=== PATIENT | male | born 1965 | race African-American/Black ===

== ENCOUNTER 2017-05-17 18:19 | Emergency (ER) | payer MEDICAID ==
[~2017-05-17] VITALS: Ht 167.6 cm; Wt 91.0 kg
[~2017-05-17 18:19] MED LIST: ABIL10; BUPR75TA3; DARU75TA; EMTR1TAB11 PO; RITO100T
[2017-05-17 21:40] VITALS: BP 126/89
== END 2017-05-17 22:42 | disposition home or self-care (01) ==
LOC: ER 18:19
DX: K04.7 Periapical abscess without sinus (principal)
CPT/HCPCS: 99283; Z7610

== ENCOUNTER 2020-08-13 19:43 | Emergency (ER) | payer MEDICAID ==
[~2020-08-13] VITALS: Ht 167.6 cm; Wt 95.1 kg
[2020-08-13 19:50] VITALS: BP 119/71
[2020-08-13] MEDS ORDERED: IBUPROFEN 600MG TABLET PO ONE (20:45)
== END 2020-08-13 21:32 | disposition home or self-care (01) ==
LOC: ER 19:43
DX: H92.02 Otalgia, left ear (principal); F20.9 Schizophrenia, unspecified; Z87.442 Personal history of urinary calculi
CPT/HCPCS: 99282

== ENCOUNTER 2020-09-07 18:05 | Emergency (ER) | payer MEDICAID ==
[~2020-09-07] VITALS: Ht 167.6 cm; Wt 91.0 kg
[2020-09-07] MEDS ORDERED: IBUPROFEN 600MG TABLET PO ONE (19:15)
[2020-09-07 20:04] VITALS: BP 151/74
== END 2020-09-07 20:06 | disposition home or self-care (01) ==
LOC: ER 18:05
DX: M25.562 Pain in left knee (principal); M79.662 Pain in left lower leg; F20.9 Schizophrenia, unspecified; F31.9 Bipolar disorder, unspecified; Z87.442 Personal history of urinary calculi
CPT/HCPCS: 73560; 93971; 99284

== ENCOUNTER 2021-06-04 02:03 | Emergency (ER) | payer MEDICAID ==
[~2021-06-04] VITALS: Ht 167.6 cm; Wt 69.7 kg
[2021-06-04 03:02] VITALS: BP 113/74
[2021-06-04 05:15] LABS: CHLORIDE 104 mEq/L (98-107)
[2021-06-04] MEDS ORDERED: DARU1TAB3 PO (05:30)
== END 2021-06-04 05:44 | disposition home or self-care (01) ==
LOC: ER 02:03
DX: Z76.0 Encounter for issue of repeat prescription (principal); J45.909 Unspecified asthma, uncomplicated; Z86.59 Personal history of other mental and behavioral disorders
CPT/HCPCS: 36415; 80053; 99283

== ENCOUNTER 2021-06-06 19:36 | Emergency (ER) | payer MEDICAID ==
[~2021-06-06] VITALS: Ht 167.6 cm; Wt 64.0 kg
[~2021-06-06 19:36] MED LIST changes: +DARU1TAB3 PO
[2021-06-06 19:42] VITALS: BP 157/119
== END 2021-06-07 00:02 | disposition left against medical advice (07) ==
LOC: ER 19:36
DX: Z53.21 Procedure and treatment not carried out due to patient leaving prior to being seen by health care provider (principal)
CPT/HCPCS: 93005

== ENCOUNTER 2021-06-26 21:05 | Emergency (ER) | payer MEDICAID ==
[~2021-06-26] VITALS: Ht 167.6 cm; Wt 69.5 kg
[2021-06-26 21:10] VITALS: BP 114/86
[2021-06-27] MEDS ORDERED: DARU1TAB3 PO (09:39)
== END 2021-06-27 02:05 | disposition left against medical advice (07) ==
LOC: ER 21:05
DX: R07.81 Pleurodynia (principal); Z53.21 Procedure and treatment not carried out due to patient leaving prior to being seen by health care provider

== ENCOUNTER 2021-06-27 09:19 | Emergency (ER) | payer MEDICAID ==
[~2021-06-27] VITALS: Ht 167.6 cm; Wt 64.0 kg
[2021-06-27 09:37] VITALS: BP 125/87
[2021-06-27] MEDS ORDERED: DARU1TAB3 PO (09:39)
== END 2021-06-27 10:08 | disposition home or self-care (01) ==
LOC: ER 10:05
DX: B20 Human immunodeficiency virus [HIV] disease (principal); Z76.0 Encounter for issue of repeat prescription; F20.9 Schizophrenia, unspecified; Z79.899 Other long term (current) drug therapy
CPT/HCPCS: 99283

== ENCOUNTER 2021-07-01 13:03 | Emergency (ER) | payer MEDICAID ==
[~2021-07-01] VITALS: Ht 165.1 cm; Wt 68.0 kg
[2021-07-01 13:22] VITALS: BP 108/71
[2021-07-02] MEDS ORDERED: EMTR1TAB11 MT (20:54)
== END 2021-07-01 18:18 | disposition left against medical advice (07) ==
LOC: ER 13:03
DX: Z00.00 Encounter for general adult medical examination without abnormal findings (principal); B20 Human immunodeficiency virus [HIV] disease; F20.9 Schizophrenia, unspecified; Z87.442 Personal history of urinary calculi
CPT/HCPCS: 99281

== ENCOUNTER 2021-07-01 21:27 | Emergency (ER) | payer MEDICAID ==
[2021-07-02] MEDS ORDERED: EMTR1TAB11 MT (20:54)
== END 2021-07-01 23:17 | disposition left against medical advice (07) ==
LOC: ER 21:27
DX: Z53.21 Procedure and treatment not carried out due to patient leaving prior to being seen by health care provider (principal); B20 Human immunodeficiency virus [HIV] disease; F20.9 Schizophrenia, unspecified; Z87.442 Personal history of urinary calculi

== ENCOUNTER 2021-07-02 20:11 | Emergency (ER) | payer MEDICAID ==
[~2021-07-02] VITALS: Ht 167.6 cm; Wt 59.0 kg
[2021-07-02 20:35] VITALS: BP 109/73
[2021-07-02] MEDS ORDERED: EMTR1TAB11 MT (20:54)
== END 2021-07-02 21:18 | disposition home or self-care (01) ==
LOC: ER 20:11
DX: Z76.0 Encounter for issue of repeat prescription (principal); Z79.899 Other long term (current) drug therapy; Z86.59 Personal history of other mental and behavioral disorders; J45.909 Unspecified asthma, uncomplicated
CPT/HCPCS: 99281

== ENCOUNTER 2021-07-03 23:52 | Emergency (ER) | payer MEDICAID ==
[~2021-07-03 23:52] MED LIST changes: +EMTR1TAB11 MT
== END 2021-07-04 01:47 | disposition left against medical advice (07) ==
LOC: ER 23:52
DX: R68.89 Other general symptoms and signs (principal); Z53.21 Procedure and treatment not carried out due to patient leaving prior to being seen by health care provider

== ENCOUNTER 2021-08-12 02:08 | Emergency (ER) | payer MEDICAID ==
[~2021-08-12] VITALS: Ht 167.6 cm; Wt 72.0 kg
[2021-08-12 02:25] VITALS: BP 116/68
[2021-08-12] MEDS ORDERED: DARU1TAB3 PO (02:33)
== END 2021-08-12 02:41 | disposition home or self-care (01) ==
LOC: ER 02:08
DX: Z76.0 Encounter for issue of repeat prescription (principal); F20.9 Schizophrenia, unspecified; F31.9 Bipolar disorder, unspecified; B20 Human immunodeficiency virus [HIV] disease; Z87.442 Personal history of urinary calculi
CPT/HCPCS: 99283

== ENCOUNTER 2021-08-14 14:13 | Emergency (ER) | payer MEDICAID ==
[~2021-08-14] VITALS: Ht 185.4 cm; Wt 75.0 kg
[2021-08-14 14:32] VITALS: BP 101/67
== END 2021-08-14 15:04 | disposition home or self-care (01) ==
LOC: ER 14:27
DX: B20 Human immunodeficiency virus [HIV] disease (principal); F20.9 Schizophrenia, unspecified; F31.9 Bipolar disorder, unspecified; Z87.442 Personal history of urinary calculi
CPT/HCPCS: 99282

== ENCOUNTER 2021-08-16 08:10 | Emergency (ER) | payer MEDICAID ==
[~2021-08-16] VITALS: Ht 167.6 cm; Wt 76.0 kg
[2021-08-16 08:17] VITALS: BP 108/67
[2021-08-16] MEDS ORDERED: DARU1TAB3 PO (08:36)
== END 2021-08-16 08:55 | disposition home or self-care (01) ==
LOC: ER 08:10
DX: Z76.0 Encounter for issue of repeat prescription (principal); F20.9 Schizophrenia, unspecified; F31.9 Bipolar disorder, unspecified; Z21 Asymptomatic human immunodeficiency virus [HIV] infection status
CPT/HCPCS: 99283

== ENCOUNTER 2021-08-29 21:26 | Emergency (ER) | payer MEDICAID ==
[~2021-08-29] VITALS: Ht 167.6 cm; Wt 75.0 kg
[2021-08-29 21:37] VITALS: BP 116/70
== END 2021-08-29 22:41 | disposition home or self-care (01) ==
LOC: ER 21:44
DX: Z76.0 Encounter for issue of repeat prescription (principal); F31.9 Bipolar disorder, unspecified; F20.9 Schizophrenia, unspecified; Z79.899 Other long term (current) drug therapy; B20 Human immunodeficiency virus [HIV] disease
CPT/HCPCS: 99281

== ENCOUNTER 2024-01-27 11:45 | Inpatient (IN) | payer MEDICAID, OTHER ==
[~2024-01-27] VITALS: Ht 172.7 cm; Wt 70.8 kg
[2024-01-27 13:49] LABS: MEAN CORPUSCULAR HEMOGLOBIN 32.4 pg (28.0-32.0); MEAN CORPUSCULAR HGB CONC 33.7 g/dL (31.0-37.0); MEAN CORPUSCULAR VOLUME 96.2 fL (80.0-94.0); RED BLOOD CELL COUNT 6.28 mill/uL (4.7-6.1); RED CELL DISTRIBUTION WIDTH 13.6 % (11.6-14.6); WHITE BLOOD COUNT 11.8 x1000/uL (4.5-11.0)
[2024-01-27 13:50] LABS: DIFFERENTIAL COMMENT 1
[2024-01-27 13:52] LABS: CHLORIDE 113 mEq/L (98-107); POTASSIUM 4.1 mEq/L (3.5-5.1); SODIUM 151 mEq/L (136-145)
[2024-01-27 13:53] LABS: CALCIUM 11.4 mg/dL (8.7-10.4); CARBON DIOXIDE 21 mEq/L (21-32)
[2024-01-27 13:54] LABS: HEMATOCRIT. 60.4 % (42.0-52.0); HEMOGLOBIN. 20.4 g/dL (14.0-18.0)
[2024-01-27 13:58] LABS: CREATININE 3.6 mg/dL (0.6-1.3); GLUCOSE 137 mg/dL (70-105); UREA NITROGEN BLOOD 86 mg/dL (9-23)
[2024-01-27 13:59] LABS: AMMONIA < 17 uMol/L (<32)
[2024-01-27 14:00] LABS: ACETAMINOPHEN 7 ug/mL (10-30); ALANINE AMINOTRANSFERASE 115 IU/L (10-49); ALBUMIN 5.1 g/dL (3.2-4.8); ASPARTATE AMINOTRANSFERASE 66 IU/L (<34); BILIRUBIN DIRECT 8.3 mg/dL (<=3.0)
[2024-01-27 14:03] LABS: ETHANOL BLOOD < 10 mg/dL (<10); PROTEIN TOTAL 9.4 g/dL (6.0-8.3)
[2024-01-27 14:56] LABS: GIANT PLATELETS FEW; PLATELET ESTIMATE NORMAL
[2024-01-27 22:00] VITALS: BP 106/82; PULSE 86; RESP 18; TEMP 97.5
[2024-01-28] VITALS: BP 110/79; PULSE 65; RESP 20; TEMP 97.1
[2024-01-28] MEDS: DEXTROSE 5% WATER 1,000 ML IV SCH (01:38)
[2024-01-28 02:37] LABS: BASOPHILS % 0.2 % (0.0-2.0); EOSINOPHILS % 0.1 % (0.0-5.0); HEMOGLOBIN. 20.7 g/dL (14.0-18.0); LYMPHOCYTES % 19.5 % (20.0-50.0); MEAN CORPUSCULAR HEMOGLOBIN 32.6 pg (28.0-32.0); MEAN CORPUSCULAR HGB CONC 33.9 g/dL (31.0-37.0); MEAN CORPUSCULAR VOLUME 96.1 fL (80.0-94.0); MONOCYTES % 4.2 % (2.0-8.0); RED BLOOD CELL COUNT 6.35 mill/uL (4.7-6.1); RED CELL DISTRIBUTION WIDTH 13.5 % (11.6-14.6); WHITE BLOOD COUNT 10.3 x1000/uL (4.5-11.0)
[2024-01-28 02:42] LABS: CHLORIDE 114 mEq/L (98-107); SODIUM 151 mEq/L (136-145)
[2024-01-28 02:43] LABS: CARBON DIOXIDE 24 mEq/L (21-32)
[2024-01-28 02:48] LABS: CREATININE 3.4 mg/dL (0.6-1.3); GLUCOSE 150 mg/dL (70-105)
[2024-01-28 02:49] LABS: UREA NITROGEN BLOOD 96 mg/dL (9-23)
[2024-01-28 02:50] LABS: ALANINE AMINOTRANSFERASE 107 IU/L (10-49); ALBUMIN 4.5 g/dL (3.2-4.8); ASPARTATE AMINOTRANSFERASE 68 IU/L (<34)
[2024-01-28 02:51] LABS: BILIRUBIN DIRECT 7.7 mg/dL (<=3.0); BILIRUBIN TOTAL 10.7 mg/dL (0.1-1.0)
[2024-01-28 02:54] LABS: HEMATOCRIT. 61.1 % (42.0-52.0)
[2024-01-28 02:55] LABS: DIFFERENTIAL COMMENT 1
[2024-01-28 03:18] LABS: AMMONIA < 17 uMol/L (<32)
[2024-01-28 03:59] LABS: MEAN PLATELET VOLUME 13.7 fl (7.4-10.4); PLATELET 122 x1000/uL (130-400)
[2024-01-28 04:00] VITALS: BP 108/87; PULSE 98; RESP 16; TEMP 96.6
[2024-01-28 07:46] VITALS: BP 112/84; PULSE 94; RESP 19; TEMP 97.3
[2024-01-28] MEDS: PANTOPRAZOLE SODIUM 40 MG/VIAL IV SCH (08:39)
[2024-01-28 12:06] VITALS: BP 122/85; PULSE 84; RESP 18; TEMP 97.5
[2024-01-28] MEDS ORDERED: ACETAMINOPHEN 325MG TABLET PO PRN (13:00)
[2024-01-28 15:42] VITALS: BP 116/85; PULSE 84; RESP 19; TEMP 97
[2024-01-28 17:19] LABS: *AMPHETAMINES SCREEN URINE NEGATIVE (NEGATIVE); *BARBITURATES SCREEN URINE NEGATIVE (NEGATIVE); *BENZODIAZEPINES SCREEN URINE NEGATIVE (NEGATIVE); METHADONE URINE SCREEN NEGATIVE (NEGATIVE); OPIATES URINE SCREEN NEGATIVE (NEGATIVE)
[2024-01-28 17:20] LABS: CANNABINOID URINE SCREEN NEGATIVE (NEGATIVE); ECSTASY MDMA SCREEN URINE NEGATIVE (NEGATIVE); PHENCYCLIDINE URINE SCREEN NEGATIVE (NEGATIVE)
[2024-01-28 17:23] LABS: CLARITY URINE CLOUDY (CLEAR); COLOR URINE DARK YELLOW (YELLOW); GLUCOSE URINE NEGATIVE (NEGATIVE); KETONES URINE NEGATIVE (NEGATIVE); LEUKOCYTE ESTERASE URINE 1+ (NEGATIVE); NITRITE URINE POSITIVE (NEGATIVE); OCCULT BLOOD URINE 2+ (NEGATIVE); PH URINE 5.5 (4.5-8.0); PROTEIN URINE 2+ (NEGATIVE); SPECIFIC GRAVITY URINE 1.021 (1.005-1.030)
[2024-01-28 17:27] LABS: *COCAINE SCREEN URINE NEGATIVE (NEGATIVE)
[2024-01-28 17:46] LABS: BACTERIA URINE 1+; RBC URINE NONE SEEN /hpf (0-2); SQUAMOUS EPITHELIAL CELL URINE FEW /lpf (RARE/1+); YEAST URINE NONE SEEN
[2024-01-28 20:00] VITALS: BP 121/96; PULSE 84; RESP 20; TEMP 97.1
[2024-01-28] MEDS: CEFTRIAXONE 1GM/50ML 50 ML IV SCH (20:52)
[2024-01-28 21:10] LABS: POTASSIUM 3.5 mEq/L (3.5-5.1)
[2024-01-28 21:11] LABS: CALCIUM 10.5 mg/dL (8.7-10.4)
[2024-01-28 21:16] LABS: CREATININE 2.6 mg/dL (0.6-1.3)
[2024-01-29 00:24] VITALS: BP 116/90; PULSE 55; RESP 19; TEMP 97.1
[2024-01-29 04:00] VITALS: BP 101/78; PULSE 66; RESP 18; TEMP 97.1
[2024-01-29 05:56] LABS: BASOPHILS % 0.5 % (0.0-2.0); EOSINOPHILS % 0.5 % (0.0-5.0); HEMATOCRIT. 53.7 % (42.0-52.0); HEMOGLOBIN. 18.2 g/dL (14.0-18.0); LYMPHOCYTES % 22.2 % (20.0-50.0); MEAN CORPUSCULAR HEMOGLOBIN 32.7 pg (28.0-32.0); MEAN CORPUSCULAR HGB CONC 33.9 g/dL (31.0-37.0); MEAN CORPUSCULAR VOLUME 96.4 fL (80.0-94.0); MONOCYTES % 9.9 % (2.0-8.0); NEUTROPHILS % 66.9 % (40.0-76.0); RED BLOOD CELL COUNT 5.57 mill/uL (4.7-6.1); RED CELL DISTRIBUTION WIDTH 13.5 % (11.6-14.6); WHITE BLOOD COUNT 8.8 x1000/uL (4.5-11.0)
[2024-01-29 06:01] LABS: INR 1.4; PROTHROMBIN TIME 15.5 sec (9.6-11.0)
[2024-01-29 06:07] LABS: CARBON DIOXIDE 23 mEq/L (21-32); CHLORIDE 111 mEq/L (98-107); POTASSIUM 3.5 mEq/L (3.5-5.1); SODIUM 146 mEq/L (136-145)
[2024-01-29 06:08] LABS: CALCIUM 9.9 mg/dL (8.7-10.4)
[2024-01-29 06:13] LABS: CREATININE 2.5 mg/dL (0.6-1.3); GLUCOSE 158 mg/dL (70-105); IRON 209 ug/dL (65-175); UREA NITROGEN BLOOD 73 mg/dL (9-23)
[2024-01-29 06:15] LABS: LACTATE DEHYDROGENASE 418 IU/L (120-246)
[2024-01-29 06:16] LABS: TOTAL IRON BINDING CAPACITY 315 ug/dl (250-425)
[2024-01-29 06:17] LABS: FOLIC ACID (FOLATE) SERUM 4.91 ng/mL (>5.38)
[2024-01-29 06:28] LABS: HEPATITIS B SURFACE ANTIGEN NEGATIVE (Negative)
[2024-01-29 06:32] LABS: FERRITIN 1736 ng/mL (22-322)
[2024-01-29 06:49] LABS: HEPATITIS A AB IGM NEGATIVE (Negative); HEPATITIS B CORE AB IGM NEGATIVE (Negative)
[2024-01-29 06:50] LABS: HEPATITIS C AB NON REACTIVE (Neg) (Negative); VITAMIN B12 SERUM > 2000 pg/mL (211-911)
[2024-01-29 07:47] LABS: DIFFERENTIAL COMMENT 1
[2024-01-29 08:00] VITALS: BP 101/74; PULSE 79; RESP 18; TEMP 97.8
[2024-01-29 08:50] LABS: MEAN PLATELET VOLUME 14.4 fl (7.4-10.4); PLATELET 95 x1000/uL (130-400)
[2024-01-29] MEDS: FOLIC ACID 1MG TABLET PO SCH (10:00)
[2024-01-29 11:05] LABS: ALANINE AMINOTRANSFERASE 106 IU/L (10-49); ASPARTATE AMINOTRANSFERASE 83 IU/L (<34); BILIRUBIN DIRECT 8.5 mg/dL (<=3.0); BILIRUBIN TOTAL 12.2 mg/dL (0.1-1.0); PROTEIN TOTAL 8.1 g/dL (6.0-8.3)
[2024-01-29 12:00] VITALS: BP 112/79; PULSE 77; RESP 18; TEMP 98
[2024-01-29 16:00] VITALS: BP 146/112; PULSE 73; RESP 18; TEMP 97.8
[2024-01-29 20:00] VITALS: BP 113/87; PULSE 83; RESP 18; TEMP 97.6
[2024-01-30] VITALS: BP 105/69; PULSE 70; RESP 18; TEMP 97.7
[2024-01-30 04:00] VITALS: BP 107/84; PULSE 78; RESP 18; TEMP 97.4
[2024-01-30 08:00] VITALS: BP 99/74; PULSE 76; RESP 20; TEMP 98.1
[2024-01-30 09:06] LABS: ABSOLUTE LYMPHOCYTES 1.6 x10E3/uL (0.7-3.1); ABSOLUTE MONOCYTES 0.5 x10E3/uL (0.1-0.9); ABSOLUTE NEUTROPHILS 5.5 x10E3/uL (1.4-7.0); BASOPHILS 0 % (Not Estab.); EOSINOPHILS 0 % (Not Estab.); HEMATOCRIT 55.1 % (37.5-51.0); HEMATOLOGY COMMENT Note: (.); HEMOGLOBIN 19.5 g/dL (13.0-17.7); IMMATURE GRANULOCYTES 0 % (Not Estab.); LYMPHOCYTES 21 % (Not Estab.); MEAN CORPUSCULAR HEMOGLOBIN 32.7 pg (26.6-33.0); MEAN CORPUSCULAR HGB CONC. 35.4 g/dL (31.5-35.7); MEAN CORPUSCULAR VOLUME 92 fL (79-97); MONOCYTES 7 % (Not Estab.); NEUTROPHILS 72 % (Not Estab.); PLATELETS 100 x10E3/uL (150-450); RBC 5.96 x10E6/uL (4.14-5.80); RED CELL DISTRIBUTION WIDTH 12.3 % (11.6-15.4); WBC 7.7 x10E3/uL (3.4-10.8)
[2024-01-30 10:03] LABS: BASOPHILS % 0.2 % (0.0-2.0); EOSINOPHILS % 0.7 % (0.0-5.0); HEMATOCRIT. 52.7 % (42.0-52.0); HEMOGLOBIN. 17.7 g/dL (14.0-18.0); LYMPHOCYTES % 27.2 % (20.0-50.0); MEAN CORPUSCULAR HEMOGLOBIN 32.8 pg (28.0-32.0); MEAN CORPUSCULAR HGB CONC 33.7 g/dL (31.0-37.0); MEAN CORPUSCULAR VOLUME 97.3 fL (80.0-94.0); MONOCYTES % 9.1 % (2.0-8.0); NEUTROPHILS % 62.8 % (40.0-76.0); RED BLOOD CELL COUNT 5.41 mill/uL (4.7-6.1); RED CELL DISTRIBUTION WIDTH 13.3 % (11.6-14.6); WHITE BLOOD COUNT 6.6 x1000/uL (4.5-11.0)
[2024-01-30 10:09] LABS: % CD 3 POS. LYMPHOCYTES 72.9 % (57.5-86.2); % CD 4 POS. LYMPHOCYTES 25.6 % (30.8-58.5); % CD 8 POS. LYMPH 47.9 % (12.0-35.5); ABSOLUTE CD 3 1166 /uL (622-2402); ABSOLUTE CD 4 HELPER 410 /uL (359-1519); ABSOLUTE CD 8 SUPPRESSOR 766 /uL (109-897); CD4/CD8 RATIO 0.53 (0.92-3.72)
[2024-01-30 10:15] LABS: DIFFERENTIAL COMMENT 1
[2024-01-30 10:16] LABS: CHLORIDE 107 mEq/L (98-107); POTASSIUM 3.8 mEq/L (3.5-5.1); SODIUM 142 mEq/L (136-145)
[2024-01-30 10:17] LABS: CALCIUM 9.7 mg/dL (8.7-10.4); CARBON DIOXIDE 26 mEq/L (21-32)
[2024-01-30 10:21] LABS: INR 1.4; PROTHROMBIN TIME 15.2 sec (9.6-11.0)
[2024-01-30 10:22] LABS: CREATININE 2.1 mg/dL (0.6-1.3); GLUCOSE 146 mg/dL (70-105); UREA NITROGEN BLOOD 49 mg/dL (9-23)
[2024-01-30 10:24] LABS: ALANINE AMINOTRANSFERASE 109 IU/L (10-49); ALBUMIN 3.8 g/dL (3.2-4.8); ASPARTATE AMINOTRANSFERASE 90 IU/L (<34)
[2024-01-30 10:25] LABS: BILIRUBIN TOTAL 11.7 mg/dL (0.1-1.0); PROTEIN TOTAL 7.6 g/dL (6.0-8.3)
[2024-01-30 12:00] VITALS: BP 130/79; PULSE 69; RESP 18; TEMP 97.6
[2024-01-30 12:28] LABS: PLATELET 89 x1000/uL (130-400)
[2024-01-30 16:00] VITALS: BP 110/78; PULSE 74; RESP 18; TEMP 98.1
[2024-01-30 20:00] VITALS: BP 120/77; PULSE 74; RESP 19; TEMP 97.1
[2024-01-31] VITALS: BP 108/77; PULSE 63; RESP 19; TEMP 98.4
[2024-01-31 04:00] VITALS: BP 102/78; PULSE 72; RESP 19; TEMP 97.5
[2024-01-31 06:04] LABS: CHLORIDE 105 mEq/L (98-107); SODIUM 141 mEq/L (136-145)
[2024-01-31 06:05] LABS: CARBON DIOXIDE 27 mEq/L (21-32)
[2024-01-31 06:06] LABS: CALCIUM 9.6 mg/dL (8.7-10.4)
[2024-01-31 06:10] LABS: CREATININE 1.7 mg/dL (0.6-1.3); GLUCOSE 147 mg/dL (70-105)
[2024-01-31 06:11] LABS: UREA NITROGEN BLOOD 39 mg/dL (9-23)
[2024-01-31 06:12] LABS: ALANINE AMINOTRANSFERASE 113 IU/L (10-49); ALBUMIN 3.8 g/dL (3.2-4.8); ASPARTATE AMINOTRANSFERASE 82 IU/L (<34)
[2024-01-31 06:13] LABS: BILIRUBIN TOTAL 10.1 mg/dL (0.1-1.0); PROTEIN TOTAL 7.4 g/dL (6.0-8.3)
[2024-01-31 07:52] LABS: BASOPHILS % 0.3 % (0.0-2.0); DIFFERENTIAL COMMENT 0; EOSINOPHILS % 1.5 % (0.0-5.0); HEMATOCRIT. 49.5 % (42.0-52.0); HEMOGLOBIN. 16.9 g/dL (14.0-18.0); LYMPHOCYTES % 31.5 % (20.0-50.0); MEAN CORPUSCULAR HEMOGLOBIN 32.7 pg (28.0-32.0); MEAN CORPUSCULAR HGB CONC 34.2 g/dL (31.0-37.0); MEAN CORPUSCULAR VOLUME 95.8 fL (80.0-94.0); MEAN PLATELET VOLUME 14.4 fl (7.4-10.4); MONOCYTES % 10.1 % (2.0-8.0); NEUTROPHILS % 56.6 % (40.0-76.0); PLATELET 82 x1000/uL (130-400); RED BLOOD CELL COUNT 5.16 mill/uL (4.7-6.1); RED CELL DISTRIBUTION WIDTH 13.1 % (11.6-14.6); WHITE BLOOD COUNT 6.6 x1000/uL (4.5-11.0)
[2024-01-31 08:00] VITALS: BP 110/76; PULSE 78; RESP 18; TEMP 98
[2024-01-31] MEDS: SODIUM CHLORIDE 0.45% 1,000 ML IV SCH (11:15)
[2024-01-31 12:00] VITALS: BP 118/84; PULSE 67; RESP 18; TEMP 97.8
[2024-01-31 16:00] VITALS: BP 120/79; PULSE 68; RESP 18; TEMP 97.9
[2024-01-31 20:00] VITALS: BP 110/81; PULSE 75; RESP 18; TEMP 98.3
[2024-01-31] MEDS: MIRTAZAPINE 15MG TABLET PO SCH (21:17)
[2024-02-01] VITALS: BP 119/86; PULSE 91; RESP 18; TEMP 97.4
[2024-02-01 04:00] VITALS: BP 101/76; PULSE 73; RESP 18; TEMP 98.1
[2024-02-01] MEDS: ONDANSETRON HCL 4MG/2ML INJ IV PRN (05:52)
[2024-02-01 08:00] VITALS: BP 99/72; PULSE 83; RESP 20; TEMP 97.1
[2024-02-01 12:00] VITALS: BP 108/75; PULSE 80; RESP 18; TEMP 98.1
[2024-02-01 16:00] VITALS: BP 118/79; PULSE 79; RESP 16; TEMP 97.9
[2024-02-01 20:00] VITALS: BP 123/88; PULSE 81; RESP 17; TEMP 97.9
[2024-02-01 22:05] LABS: EOSINOPHILS % 1.1 % (0.0-5.0); HEMATOCRIT. 46.9 % (42.0-52.0); HEMOGLOBIN. 15.7 g/dL (14.0-18.0); MEAN CORPUSCULAR HEMOGLOBIN 32.5 pg (28.0-32.0); MEAN CORPUSCULAR HGB CONC 33.5 g/dL (31.0-37.0); MEAN CORPUSCULAR VOLUME 96.8 fL (80.0-94.0); MEAN PLATELET VOLUME 13.6 fl (7.4-10.4); MONOCYTES % 12.2 % (2.0-8.0); NEUTROPHILS % 53.4 % (40.0-76.0); PLATELET 84 x1000/uL (130-400); RED BLOOD CELL COUNT 4.84 mill/uL (4.7-6.1); RED CELL DISTRIBUTION WIDTH 13.3 % (11.6-14.6); WHITE BLOOD COUNT 7.4 x1000/uL (4.5-11.0)
[2024-02-01 22:15] LABS: CHLORIDE 109 mEq/L (98-107); POTASSIUM 4.2 mEq/L (3.5-5.1); SODIUM 140 mEq/L (136-145)
[2024-02-01 22:16] LABS: CARBON DIOXIDE 22 mEq/L (21-32)
[2024-02-01 22:17] LABS: CALCIUM 9.2 mg/dL (8.7-10.4)
[2024-02-01 22:21] LABS: CREATININE 1.2 mg/dL (0.6-1.3); GLUCOSE 71 mg/dL (70-105); UREA NITROGEN BLOOD 23 mg/dL (9-23)
[2024-02-01 22:23] LABS: ALANINE AMINOTRANSFERASE 103 IU/L (10-49); ALBUMIN 3.7 g/dL (3.2-4.8); ASPARTATE AMINOTRANSFERASE 66 IU/L (<34)
[2024-02-01 22:24] LABS: BILIRUBIN TOTAL 7.6 mg/dL (0.1-1.0); PROTEIN TOTAL 7.1 g/dL (6.0-8.3)
[2024-02-02] VITALS (7 sets, daily range): BP systolic 94–129; BP diastolic 64–87; PULSE 62–82; RESP 16–20; TEMP 97.3–98.4
[2024-02-02 13:38] LABS: BASOPHILS % 0.3 % (0.0-2.0)
[2024-02-02 20:36] LABS: BASOPHILS % 0.5 % (0.0-2.0); CHLORIDE 109 mEq/L (98-107); DIFFERENTIAL COMMENT 0; HEMATOCRIT. 47.5 % (42.0-52.0); HEMOGLOBIN. 16.1 g/dL (14.0-18.0); LYMPHOCYTES % 31.3 % (20.0-50.0); MEAN CORPUSCULAR HEMOGLOBIN 32.6 pg (28.0-32.0); MEAN CORPUSCULAR HGB CONC 33.8 g/dL (31.0-37.0); MEAN CORPUSCULAR VOLUME 96.4 fL (80.0-94.0); MEAN PLATELET VOLUME 13.2 fl (7.4-10.4); NEUTROPHILS % 57.2 % (40.0-76.0); PLATELET 86 x1000/uL (130-400); RED BLOOD CELL COUNT 4.93 mill/uL (4.7-6.1); RED CELL DISTRIBUTION WIDTH 13.2 % (11.6-14.6); SODIUM 144 mEq/L (136-145); WHITE BLOOD COUNT 7.1 x1000/uL (4.5-11.0)
[2024-02-02 20:37] LABS: CARBON DIOXIDE 23 mEq/L (21-32)
[2024-02-02 20:38] LABS: CALCIUM 9.5 mg/dL (8.7-10.4)
[2024-02-02 20:42] LABS: CREATININE 1.2 mg/dL (0.6-1.3); GLUCOSE 74 mg/dL (70-105); UREA NITROGEN BLOOD 20 mg/dL (9-23)
[2024-02-02 20:44] LABS: ALANINE AMINOTRANSFERASE 103 IU/L (10-49); ALBUMIN 3.8 g/dL (3.2-4.8); ASPARTATE AMINOTRANSFERASE 63 IU/L (<34); BILIRUBIN DIRECT 4.5 mg/dL (<=3.0); LACTATE DEHYDROGENASE 288 IU/L (120-246)
[2024-02-02 20:45] LABS: PROTEIN TOTAL 7.3 g/dL (6.0-8.3)
[2024-02-02 20:54] LABS: BILIRUBIN TOTAL 5.7 mg/dL (0.1-1.0)
[2024-02-03] VITALS: BP 110/76; PULSE 63; RESP 20; TEMP 97.1
[2024-02-03 04:00] VITALS: BP 101/71; PULSE 75; RESP 18; TEMP 97.9
[2024-02-03 08:00] VITALS: BP 106/57; PULSE 54; RESP 18; TEMP 97.8
[2024-02-03 08:07] LABS: CHLORIDE 111 mEq/L (98-107); POTASSIUM 4.4 mEq/L (3.5-5.1); SODIUM 143 mEq/L (136-145)
[2024-02-03 08:08] LABS: CALCIUM 9.6 mg/dL (8.7-10.4); CARBON DIOXIDE 16 mEq/L (21-32)
[2024-02-03 08:13] LABS: CREATININE 1.1 mg/dL (0.6-1.3); GLUCOSE 74 mg/dL (70-105); UREA NITROGEN BLOOD 14 mg/dL (9-23)
[2024-02-03 08:14] LABS: ALBUMIN 3.7 g/dL (3.2-4.8)
[2024-02-03 08:15] LABS: ALANINE AMINOTRANSFERASE 107 IU/L (10-49); ASPARTATE AMINOTRANSFERASE 68 IU/L (<34); BILIRUBIN TOTAL 5.4 mg/dL (0.1-1.0); PROTEIN TOTAL 7.2 g/dL (6.0-8.3)
[2024-02-03 11:21] LABS: BASOPHILS % 0.4 % (0.0-2.0); HEMATOCRIT. 46.1 % (42.0-52.0); HEMOGLOBIN. 15.5 g/dL (14.0-18.0); LYMPHOCYTES % 32.5 % (20.0-50.0); MEAN CORPUSCULAR HEMOGLOBIN 32.4 pg (28.0-32.0); MEAN CORPUSCULAR HGB CONC 33.7 g/dL (31.0-37.0); MEAN CORPUSCULAR VOLUME 96.1 fL (80.0-94.0); MEAN PLATELET VOLUME 13.2 fl (7.4-10.4); MONOCYTES % 8.6 % (2.0-8.0); NEUTROPHILS % 57.5 % (40.0-76.0); PLATELET 88 x1000/uL (130-400); RED CELL DISTRIBUTION WIDTH 13.1 % (11.6-14.6); WHITE BLOOD COUNT 6.7 x1000/uL (4.5-11.0)
[2024-02-03 12:00] VITALS: BP 120/78; PULSE 67; RESP 16; TEMP 98.9
[2024-02-03 16:00] VITALS: BP 103/64; PULSE 66; RESP 22; TEMP 98.9
[2024-02-03 20:06] VITALS: BP 101/67; PULSE 63; RESP 18; TEMP 97.2
[2024-02-03] MEDS: MIRTAZAPINE 15MG TABLET PO SCH (23:16)
[2024-02-04] VITALS: BP 98/72; PULSE 67; RESP 18; TEMP 97.4
[2024-02-04 04:00] VITALS: BP 107/72; PULSE 60; RESP 18; TEMP 97.6
[2024-02-04 08:00] VITALS: BP 109/64; PULSE 49; RESP 18; TEMP 98.4
[2024-02-04 12:00] VITALS: BP 100/63; PULSE 51; RESP 16; TEMP 97.4
[2024-02-04 16:00] VITALS: BP 106/66; PULSE 79; RESP 18; TEMP 98.1
[2024-02-04 20:00] VITALS: BP 119/64; PULSE 58; RESP 19; TEMP 98
[2024-02-05] VITALS: BP 112/80; PULSE 68; RESP 16; TEMP 97.6
[2024-02-05 04:00] VITALS: BP 104/57; PULSE 49; RESP 19; TEMP 97.8
[2024-02-05 08:00] VITALS: BP 102/74; PULSE 58; RESP 18; TEMP 98.9
[2024-02-05 08:33] LABS: BASOPHILS % 0.8 % (0.0-2.0); DIFFERENTIAL COMMENT 0; HEMATOCRIT. 44.7 % (42.0-52.0); LYMPHOCYTES % 31.6 % (20.0-50.0); MEAN CORPUSCULAR HEMOGLOBIN 31.9 pg (28.0-32.0); MEAN CORPUSCULAR HGB CONC 33.5 g/dL (31.0-37.0); MEAN CORPUSCULAR VOLUME 95.2 fL (80.0-94.0); MEAN PLATELET VOLUME 12.9 fl (7.4-10.4); MONOCYTES % 6.1 % (2.0-8.0); NEUTROPHILS % 60.5 % (40.0-76.0); PLATELET 102 x1000/uL (130-400); RED CELL DISTRIBUTION WIDTH 13.1 % (11.6-14.6); WHITE BLOOD COUNT 6.7 x1000/uL (4.5-11.0)
[2024-02-05 08:40] LABS: CHLORIDE 109 mEq/L (98-107); POTASSIUM 3.9 mEq/L (3.5-5.1); SODIUM 143 mEq/L (136-145)
[2024-02-05 08:43] LABS: CALCIUM 9.4 mg/dL (8.7-10.4); CARBON DIOXIDE 23 mEq/L (21-32)
[2024-02-05 08:48] LABS: CREATININE 1.2 mg/dL (0.6-1.3); GLUCOSE 84 mg/dL (70-105); UREA NITROGEN BLOOD 17 mg/dL (9-23)
[2024-02-05 08:49] LABS: ALANINE AMINOTRANSFERASE 95 IU/L (10-49)
[2024-02-05 08:50] LABS: ALBUMIN 3.9 g/dL (3.2-4.8); ASPARTATE AMINOTRANSFERASE 55 IU/L (<34)
[2024-02-05 08:51] LABS: BILIRUBIN DIRECT 3.2 mg/dL (<=3.0); BILIRUBIN TOTAL 4.4 mg/dL (0.1-1.0)
[2024-02-05 12:00] VITALS: BP 119/78; PULSE 52; RESP 18; TEMP 96.8
[2024-02-05 16:00] VITALS: BP 113/74; PULSE 47; RESP 18; TEMP 97.9
[2024-02-05 19:06] LABS: ACTIN (SMOOTH MUSCLE) ANTIBODY 4 Units (0-19); MITOCHONDRIAL M2 AB <20.0 Units (0.0-20.0)
[2024-02-05 20:41] VITALS: BP 111/58; PULSE 58; RESP 16
[2024-02-05] MEDS: LORAZEPAM 1MG TABLET PO SCH (21:52)
[2024-02-06] VITALS (7 sets, daily range): BP systolic 102–135; BP diastolic 56–71; PULSE 48–69; RESP 16–20; TEMP 97.4–98.9
[2024-02-06] MEDS: DEXT 5%/0.45% NACL 1000ML 1,000 ML IV SCH (13:43)
[2024-02-07] VITALS: BP 107/69; PULSE 53; RESP 18; TEMP 97.9
[2024-02-07 04:00] VITALS: BP 101/65; PULSE 76; RESP 19; TEMP 97.3
[2024-02-07 06:25] LABS: BASOPHILS % 0.9 % (0.0-2.0); EOSINOPHILS % 1.7 % (0.0-5.0); HEMATOCRIT. 39.9 % (42.0-52.0); HEMOGLOBIN. 13.7 g/dL (14.0-18.0); LYMPHOCYTES % 34.4 % (20.0-50.0); MEAN CORPUSCULAR HEMOGLOBIN 32.3 pg (28.0-32.0); MEAN CORPUSCULAR HGB CONC 34.4 g/dL (31.0-37.0); MEAN PLATELET VOLUME 12.5 fl (7.4-10.4); PLATELET 98 x1000/uL (130-400); RED BLOOD CELL COUNT 4.25 mill/uL (4.7-6.1); RED CELL DISTRIBUTION WIDTH 13.1 % (11.6-14.6); WHITE BLOOD COUNT 6.3 x1000/uL (4.5-11.0)
[2024-02-07 06:36] LABS: CARBON DIOXIDE 26 mEq/L (21-32); CHLORIDE 107 mEq/L (98-107); POTASSIUM 3.1 mEq/L (3.5-5.1); SODIUM 140 mEq/L (136-145)
[2024-02-07 06:38] LABS: CALCIUM 8.6 mg/dL (8.7-10.4)
[2024-02-07 06:42] LABS: GLUCOSE 144 mg/dL (70-105); UREA NITROGEN BLOOD 11 mg/dL (9-23)
[2024-02-07 06:45] LABS: BILIRUBIN TOTAL 3.6 mg/dL (0.1-1.0)
[2024-02-07] MEDS: POTASSIUM CHLORIDE 20MEQ TABLET SR PO NR (10:30)
[2024-02-07 12:00] VITALS: BP 103/58; PULSE 45; RESP 20; TEMP 97
[2024-02-07 16:00] VITALS: BP 115/73; PULSE 67; RESP 20; TEMP 97.6
[2024-02-07 20:00] VITALS: BP 113/80; PULSE 56; RESP 18; TEMP 97.7
[2024-02-07] MEDS: OLANZAPINE 2.5MG TABLET PO SCH (21:00)
[2024-02-08] VITALS: BP 102/50; PULSE 52; RESP 18; TEMP 98.6
[2024-02-08 04:00] VITALS: BP 107/76; PULSE 63; RESP 19; TEMP 97.4
[2024-02-08 08:00] VITALS: BP 116/76; PULSE 73; RESP 18; TEMP 98.2
[2024-02-08 12:00] VITALS: BP 120/74; PULSE 70; RESP 18; TEMP 97.9
[2024-02-08 16:00] VITALS: BP 102/57; PULSE 85; RESP 18; TEMP 97.6
[2024-02-08 20:00] VITALS: BP 91/56; PULSE 77; RESP 18; TEMP 97.8
[2024-02-09] VITALS: BP 96/51; PULSE 71; RESP 20; TEMP 97.6
[2024-02-09 04:01] VITALS: BP 92/54; PULSE 61; RESP 18; TEMP 97.4
[2024-02-09 08:00] VITALS: BP 93/55; PULSE 62; RESP 20; TEMP 98.1
[2024-02-09 12:00] VITALS: BP 95/69; PULSE 73; RESP 2; TEMP 98.2
[2024-02-09 15:47] VITALS: BP 95/59; PULSE 80; TEMP 97.7; O2SAT 95
[2024-02-09 16:00] VITALS: BP 95/59; PULSE 80; RESP 18; TEMP 97.7
== END 2024-02-09 17:22 | DRG 52 ==
LOC: ER 11:45 → 5WST 14:48 → EDBEDREQTM 15:02 → EDBEDREQ 15:02 → 7WST 22:08
PROVIDERS: ADMIT Internal Medicine; ATTEND Internal Medicine
DX: G92.8 Other toxic encephalopathy (principal); N17.9 Acute kidney failure, unspecified; E87.0 Hyperosmolality and hypernatremia; N39.0 Urinary tract infection, site not specified; K82.8 Other specified diseases of gallbladder; F20.9 Schizophrenia, unspecified; E83.52 Hypercalcemia; D18.03 Hemangioma of intra-abdominal structures; N40.0 Benign prostatic hyperplasia without lower urinary tract symptoms; E53.8 Deficiency of other specified B group vitamins; Z20.822 Contact with and (suspected) exposure to COVID-19; D75.1 Secondary polycythemia; F19.10 Other psychoactive substance abuse, uncomplicated; Z87.891 Personal history of nicotine dependence; W34.00XA Accidental discharge from unspecified firearms or gun, initial encounter
CPT/HCPCS: 36415; 71045; 74176; 76700; 80048; 80053; 80076; 80305; 80307; 80320; 80329; 81003; 82105; 82140; 82247; 82248; 82607; 82728; 82746; 82962; 83516; 83540; 83550; 83615; 84145; 85025; 85044; 86359; 86360; 86705; 86709; 87340; 87426; 93005; 99285; C9113; J0696; J2405; J2470; J7070; G0480

== ENCOUNTER 2024-07-14 05:23 | Emergency (ER) | payer OTHER ==
[~2024-07-14] VITALS: Ht 165.1 cm; Wt 91.4 kg
[2024-07-14 05:42] VITALS: BP 142/80; RESP 18; TEMP 98.4; O2SAT 99
[2024-07-14 05:46] VITALS: PULSE 110; O2SAT 98
== END 2024-07-14 09:53 | disposition left against medical advice (07) ==
LOC: ER 05:23
DX: K46.9 Unspecified abdominal hernia without obstruction or gangrene (principal); F20.9 Schizophrenia, unspecified; F31.9 Bipolar disorder, unspecified; Z87.442 Personal history of urinary calculi; Z53.21 Procedure and treatment not carried out due to patient leaving prior to being seen by health care provider

== ENCOUNTER 2024-07-15 04:41 | Emergency (ER) | payer OTHER ==
[~2024-07-15] VITALS: Ht 167.6 cm; Wt 82.0 kg
[2024-07-15 04:44] VITALS: BP 122/82; PULSE 96; RESP 16; TEMP 98.2; O2SAT 100
[2024-07-15 05:45] LABS: CHLORIDE 106 mEq/L (98-107); POTASSIUM 3.7 mEq/L (3.5-5.1); SODIUM 140 mEq/L (136-145)
[2024-07-15 05:46] LABS: CARBON DIOXIDE 24 mEq/L (21-32)
[2024-07-15 05:47] LABS: CALCIUM 9.5 mg/dL (8.7-10.4)
[2024-07-15 05:51] LABS: CREATININE 1.3 mg/dL (0.6-1.3); GLUCOSE 127 mg/dL (70-105); INR 0.9; PROTHROMBIN TIME 10.6 sec (9.6-11.0)
[2024-07-15 05:52] LABS: UREA NITROGEN BLOOD 25 mg/dL (9-23)
[2024-07-15 05:53] LABS: ALANINE AMINOTRANSFERASE 24 IU/L (10-49); ALBUMIN 4.1 g/dL (3.2-4.8); ASPARTATE AMINOTRANSFERASE 43 IU/L (<34)
[2024-07-15 05:54] LABS: BILIRUBIN DIRECT 0.3 mg/dL (<=3.0); BILIRUBIN TOTAL 0.9 mg/dL (0.1-1.0); PROTEIN TOTAL 6.8 g/dL (6.0-8.3)
[2024-07-15 05:55] LABS: BASOPHILS % 0.8 % (0.0-2.0); EOSINOPHILS % 0.9 % (0.0-5.0); HEMATOCRIT. 39.9 % (42.0-52.0); HEMOGLOBIN. 13.7 g/dL (14.0-18.0); MEAN CORPUSCULAR HEMOGLOBIN 33.6 pg (28.0-32.0); MEAN CORPUSCULAR HGB CONC 34.3 g/dL (31.0-37.0); MEAN PLATELET VOLUME 10.5 fl (7.4-10.4); NEUTROPHILS % 61.3 % (40.0-76.0); PLATELET 172 x1000/uL (130-400); RED BLOOD CELL COUNT 4.07 mill/uL (4.7-6.1); RED CELL DISTRIBUTION WIDTH 13.5 % (11.6-14.6); WHITE BLOOD COUNT 7.9 x1000/uL (4.5-11.0)
== END 2024-07-15 06:37 | disposition home or self-care (01) ==
LOC: ER 04:41
DX: R10.2 Pelvic and perineal pain (principal); F31.9 Bipolar disorder, unspecified; F20.9 Schizophrenia, unspecified; Z79.899 Other long term (current) drug therapy
CPT/HCPCS: 36415; 80048; 80076; 85025; 99283